=== PATIENT | female | born 1945 | race Two or more races ===

== ENCOUNTER 2021-02-08 10:02 | Inpatient (IN) | payer OTHER ==
[~2021-02-08] VITALS: Ht 152.4 cm; Wt 63.5 kg
[2021-02-08] MEDS ORDERED: ECOTRIN81 MG PO (10:21)
[2021-02-08] MEDS ORDERED: COZAAR25 MG PO (10:21)
[2021-02-12] MEDS ORDERED: FAMOTIDINE40 MG (11:36)
[2021-02-12] MEDS ORDERED: INTESTINEX680 M1 (11:36)
[2021-02-12] MEDS ORDERED: DICLOFENAC POTA50 MG (11:36)
== END 2021-02-14 15:42 | disposition home or self-care (01) | DRG 392 ==
LOC: ER 10:02 → MEDI 21:40
PROVIDERS: ADMIT Internal Medicine; ATTEND Internal Medicine
PROC: BW2110Z Computerized Tomography (CT Scan) of Abdomen and Pelvis using Low Osmolar Contrast, Unenhanced and Enhanced (ICD-10-PCS; principal; 2021-02-08)
PROC: 02HV33Z Insertion of Infusion Device into Superior Vena Cava, Percutaneous Approach (ICD-10-PCS; 2021-02-13)
DX: K57.32 Diverticulitis of large intestine without perforation or abscess without bleeding (principal); D72.828 Other elevated white blood cell count; Z20.822 Contact with and (suspected) exposure to COVID-19

== ENCOUNTER 2021-04-19 11:15 | Inpatient (IN) | payer OTHER ==
[~2021-04-19] VITALS: Ht 152.4 cm; Wt 66.7 kg
[~2021-04-19 11:15] MED LIST: COZAAR25 MG PO; DICLOFENAC POTA50 MG; ECOTRIN81 MG PO; FAMOTIDINE40 MG; INTESTINEX680 M1
[2021-04-19] MEDS ORDERED: COZAAR50 MG PO (13:10)
[2021-04-23] MEDS ORDERED: FAMOTIDINE40 MG (09:15)
[2021-04-23] MEDS ORDERED: VITAMIN D3125 MC1 (09:15)
[2021-04-23] MEDS ORDERED: INTESTINEX680 M1 (09:15)
[2021-04-26] MEDS ORDERED: GABAPENTIN300 MG PO (10:22)
[2021-04-26] MEDS ORDERED: INTESTINEX680 M1 PO (10:22)
[2021-04-26] MEDS ORDERED: HYOSCYAMINE0.125 M1 SL (10:22)
== END 2021-04-26 13:30 | disposition home or self-care (01) | DRG 331 ==
LOC: O/R 04-23 06:45 → SURG 04-23 06:45 → SURH 04-23 11:00 → SURG 04-23 15:59
PROVIDERS: ADMIT Surgery; ATTEND Surgery
PROC: 0DTN4ZZ Resection of Sigmoid Colon, Percutaneous Endoscopic Approach (ICD-10-PCS; principal; 2021-04-24)
PROC: 0DBP4ZZ Excision of Rectum, Percutaneous Endoscopic Approach (ICD-10-PCS; 2021-04-24)
PROC: 0DJD8ZZ Inspection of Lower Intestinal Tract, Via Natural or Artificial Opening Endoscopic (ICD-10-PCS; 2021-04-24)
DX: K57.32 Diverticulitis of large intestine without perforation or abscess without bleeding (principal); R10.9 Unspecified abdominal pain; R73.01 Impaired fasting glucose; I11.9 Hypertensive heart disease without heart failure; I10 Essential (primary) hypertension